=== PATIENT | male | born 2000 | race Caucasian/White ===

== ENCOUNTER 2022-12-17 17:31 | Emergency (ER) | payer OTHER ==
[~2022-12-17] VITALS: Ht 172.7 cm; Wt 63.0 kg
[2022-12-17 17:40] VITALS: O2SAT 97
[2022-12-17 19:12] LABS: CHLORIDE 109 mEq/L (98-107); INDEX HEMOLYSI 1 (1-3); INDEX ICTERIC 1 (1-4); INDEX LIPEMIC 1 (1-3); POTASSIUM 3.9 mEq/L (3.5-5.1); SODIUM 139 mEq/L (136-145)
[2022-12-17 19:17] LABS: BASOPHILS % 0.6 % (0.0-2.0); EOSINOPHILS % 1.7 % (0.0-5.0); HEMATOCRIT. 42.7 % (42.0-52.0); HEMOGLOBIN. 14.8 g/dL (14.0-18.0); LYMPHOCYTES % 21.1 % (20.0-50.0); MEAN CORPUSCULAR HGB CONC 34.5 g/dL (31.0-37.0); MEAN CORPUSCULAR VOLUME 89.7 fL (80.0-94.0); MEAN PLATELET VOLUME 8.5 fl (7.4-10.4); MONOCYTES % 7.7 % (2.0-8.0); NEUTROPHILS % 68.9 % (40.0-76.0); PLATELET 240 x1000/uL (130-400); RED BLOOD CELL COUNT 4.77 mill/uL (4.7-6.1); RED CELL DISTRIBUTION WIDTH 13.3 % (11.6-14.6); WHITE BLOOD COUNT 6.4 x1000/uL (4.5-11.0)
[2022-12-17 19:21] LABS: ALANINE AMINOTRANSFERASE 20 IU/L (13-61); ALBUMIN 4.3 g/dL (3.4-5.0); ASPARTATE AMINOTRANSFERASE 20 IU/L (15-37); BILIRUBIN TOTAL 0.2 mg/dL (0.1-1.0); CALCIUM 9.8 mg/dL (8.5-10.1); CARBON DIOXIDE 25 mEq/L (21-32); CREATININE 0.6 mg/dL (0.6-1.3); GLUCOSE 102 mg/dL (70-105); NT PRO B-TYPE NATRIURETIC PEP 12 pg/mL (5-125); PROTEIN TOTAL 7.7 g/dL (6.0-8.3); UREA NITROGEN BLOOD 12 mg/dL (7-21)
[2022-12-17 19:32] LABS: TROPONIN I HIGH SENSITIVITY < 4 ng/L (<78)
[2022-12-17 19:52] VITALS: BP 115/72; PULSE 78; RESP 18; TEMP 98
== END 2022-12-17 19:55 | disposition home or self-care (01) ==
LOC: ER 17:31
DX: R00.2 Palpitations (principal); J45.909 Unspecified asthma, uncomplicated; F17.200 Nicotine dependence, unspecified, uncomplicated
CPT/HCPCS: 36415; 71045; 80053; 83880; 84484; 85025; 93005; 99285

== ENCOUNTER 2025-02-07 20:48 | Emergency (ER) | payer OTHER ==
[~2025-02-07] VITALS: Ht 162.6 cm; Wt 60.0 kg
[2025-02-07 21:21] VITALS: O2SAT 98
[2025-02-07] MEDS: LIDOCAINE HCL/EPINEPHRINE 1%-EPI 1:100,000 20ML VIAL MC ONE (22:51)
[2025-02-08] MEDS ORDERED: KEFLL21 MT (00:02)
[2025-02-08 00:12] VITALS: BP 124/82; PULSE 98; RESP 16; TEMP 36.9; O2SAT 98
== END 2025-02-08 00:14 | disposition home or self-care (01) ==
LOC: ER 20:48
DX: S61.210A Laceration without foreign body of right index finger without damage to nail, initial encounter (principal); W23.0XXA Caught, crushed, jammed, or pinched between moving objects, initial encounter; J45.909 Unspecified asthma, uncomplicated; Y93.89 Activity, other specified; Y92.89 Other specified places as the place of occurrence of the external cause; Y99.8 Other external cause status
CPT/HCPCS: 99283; 73140; 12001; J2004